=== PATIENT | female | born 1995 | race Caucasian/White ===

== ENCOUNTER 2018-11-28 22:12 | Emergency (ER) | payer BC ==
[~2018-11-28] VITALS: Ht 165.1 cm; Wt 95.2 kg
[2018-11-29] MEDS ORDERED: BACTRIM DS TAB1 EACH PO (00:39)
[2018-11-29] MEDS ORDERED: NORCO 5-325 TA1 EACH PO (00:39)
[2018-11-29] MEDS ORDERED: CEPHALEXIN500 MG PO (00:39)
== END 2018-11-29 00:45 | disposition home or self-care (01) ==
LOC: ED 22:12
DX: L03.211 Cellulitis of face (principal); F17.200 Nicotine dependence, unspecified, uncomplicated
CPT/HCPCS: 99283